=== PATIENT | male | born 1970 | race Caucasian/White ===

== ENCOUNTER 2016-12-24 05:02 | Inpatient (IN) | payer BC ==
[~2016-12-24 05:02] MED LIST: ALEVE220 M3 PO; ALEVE220 MG; ALKA-SELTZER H1 EAC1 PO; ALLOPURINOL100 M1 PO; ALLOPURINOL300 M1 PO; AMOXICILLIN500 M PO; BENICAR HCT 40-1 T; BENICAR HCT 40-1 TAB PO; BENICAR HCT 401 EACH PO; CATAPRES0.2 M1 PO; CEFTRIAXON1000 MG/VI IV; CLINDAMYCIN HC300 M2 PO; K-DUR20 MEQ PO; LISINOPRIL20 M1 PO; NORCO 7.5/325 T1 TAB PO; NORVASC10 M2 PO; NORVASC5 M2 PO; PERIDEX118 ML SSP; PRILOSEC OTC20 M1 PO; ROXICODONE5 M2 PO; SODIUM CHLORIDE10 M2 IV; TYLENOL EXTRA500 M1 PO; VICODIN 5/500 T1 TAB PO
[2016-12-24] MEDS ORDERED: AMLODIPINE BESY10 M1 PO (05:13)
[2016-12-24] MEDS ORDERED: ZOFRAN4 M2 PO (05:13)
[2016-12-24] MEDS ORDERED: CATAPRES0.2 M1 PO (05:13)
[2016-12-24] MEDS ORDERED: ZYLOPRIM300 M1 PO (05:13)
[2016-12-24 05:58] LABS: ALB/GLOB RATIO 0.7 (0.8-2.0); ALBUMIN 3.1 g/dl (3.5-5.0); ALKALINE PHOSPHATASE 71 U/L (33-138); ALT/SGPT 92 U/L (12-78); BLOOD UREA NITROGEN 21 mg/dl (6-24); CALCIUM 8.9 mg/dl (8.5-10.5); CARBON DIOXIDE-VENOUS 27 mmol/L (22-32); CHLORIDE 98 mmol/l (96-110); CREATININE 1.28 mg/dl (0.60-1.30); GLUCOSE 138 mg/dL (70-110); LIPASE 48 U/L (73-393); SODIUM 137 mmol/L (135-145); eGFR VALUE FOR BLACK 78 mL/Min
[2016-12-24 06:13] LABS: ANION GAP 14 mmol/L (0-20); AST/SGOT 105 U/L (10-40)
[2016-12-24 06:14] LABS: POTASSIUM 2.4 mmol/L (3.7-5.1)
[2016-12-24 06:22] LABS: BASO % 0.1 % (0-2); EOS % 0.1 % (0-7); HCT-HEMATOCRIT 43.8 % (36.0-53.5); HGB-HEMOGLOBIN 16.8 gm/dl (13.5-17.0); IMMATURE GRANULOCYTES ABSOLUTE 0.34 tho/cmm (0-0.03); IMMATURE GRANULOCYTES PERCENT 2.4 % (0-0.3); LYMPH ABSOLUTE COUNT 0.4 tho/cmm (0.8-4.5); MCH (MEAN CORPUSCULAR HGB) 37.8 pg (28.0-32.0); MCV (MEAN CELL VOLUME) 98.6 fl (82.0-96.0); MEAN PLATELET VOLUME 11.4 cmc (9.4-12.4); MONO % 2.9 % (0-12); MONOCYTE ABSOLUTE COUNT 0.4 tho/cmm (0.0-1.2); NEUTROPHIL ABSOLUTE COUNT 13.1 tho/cmm (1.6-8.0); NEUTROPHIL-AUTOMATED 13.1 tho/cmm (1.6-8.0); NEUTROPHILS % 91.5 % (40-80); PLATELET COUNT 109 tho/cmm (150-450); RED BLOOD COUNT 4.44 mil/cmm (4.40-5.70); RED CELL DISTRIBUTION WIDTH 14.6 % (12.4-16.4); WHITE BLOOD COUNT 14.3 tho/cmm (4.0-10.0)
[2016-12-24 06:25] LABS: MCHC MEAN CORPUSCULAR HGB CONC 38.4 % (32.0-36.0)
[2016-12-24 06:47] LABS: PROCALCITONIN 5.95 ng/ml (0.05-0.09)
[2016-12-24 07:43] LABS: URINE BILIRUBIN MODERATE (NEG); URINE BLOOD SMALL (NEG); URINE GLUCOSE (UA) NEGATIVE (NEG); URINE KETONE NEGATIVE (NEG); URINE LEUKOCYTE ESTERASE POSITIVE (NEG); URINE NITRITE NEGATIVE (NEG); URINE PROTEIN MODERATE (NEG)
[2016-12-24 07:48] LABS: URINE APPEARANCE HAZY; URINE COLOR DARK YELLOW
[2016-12-24 08:02] LABS: URINE EPITHELIAL CELLS 0-2 /[HPF] (0-10); URINE RBC 0-1 /[HPF] (0-5)
[2016-12-24 10:18] LABS: INR 1.6 INR (0.9-1.1); PROTHROMBIN TIME 18.5 SECONDS (9.0-13.6)
[2016-12-24 13:52] LABS: MAGNESIUM 1.7 mg/dl (1.3-2.6)
[2016-12-24 14:01] LABS: POTASSIUM 2.8 mmol/L (3.7-5.1)
[2016-12-24 18:23] LABS: ABG CO2 ARTERIAL 24 mmol/L (21-27); ARTERIAL BLD GAS O2 SATURATION 97 % (95-98); ARTERIAL BLOOD GAS PCO2 35 mmHg (32-45); ARTERIAL PO2 84 mmHg (70-100); BICARBONATE 23 mmol/L (21-28); BLOOD GAS BASE EXCESS 0 mM/L (-/+3); PH 7.44 Units (7.35-7.45)
--- NOTE | 2016-12-24 19:17 | NUR ---
LACTIC ACID DRAWN AND CAM BACK AT 4.2. DR JORDAN NOTIFIED @ 1820. DID NOT WANT TO TRANSFER PATIENT TO THE ICU. GAVE ORDERS TO RECHECK LACTIC ACID AT MIDNIGHT.
--- NOTE | 2016-12-24 19:19 | NUR ---
PATIENT'S RECHECK K+ @ 1400 CAME BACK @ A CRITICAL VALUE OF 2.8. ORDERS TO GIVE 40MEQ OF IV POTASSIUM AND RECHECK IN THE AM.
--- NOTE | 2016-12-24 19:20 | NUR ---
BLOOD CULTURES CAME BACK POSITIVE FOR GRAM NEG RODS. NOTIFIED DR TAPIA AT 1630. PATIENT ALREADY ON ZOSYN. NO OTHER NEW ORDERS.
[2016-12-25 05:42] LABS: HCT-HEMATOCRIT 37.2 % (36.0-53.5); HGB-HEMOGLOBIN 13.5 gm/dl (13.5-17.0); MCH (MEAN CORPUSCULAR HGB) 36.9 pg (28.0-32.0); MCV (MEAN CELL VOLUME) 101.6 fl (82.0-96.0); MEAN PLATELET VOLUME 11.3 cmc (9.4-12.4); NEUTROPHIL-AUTOMATED 2.5 tho/cmm (1.6-8.0); PLATELET COUNT 58 tho/cmm (150-450); RED BLOOD COUNT 3.66 mil/cmm (4.40-5.70); RED CELL DISTRIBUTION WIDTH 15.4 % (12.4-16.4)
[2016-12-25 05:44] LABS: INR 1.2 INR (0.9-1.1)
[2016-12-25 05:47] LABS: EOS % 0.3 % (0-7); IMMATURE GRANULOCYTES ABSOLUTE 0.92 tho/cmm (0-0.03); LYMPH ABSOLUTE COUNT 0.2 tho/cmm (0.8-4.5); MCHC MEAN CORPUSCULAR HGB CONC 36.3 % (32.0-36.0); MONO % 1.9 % (0-12); MONOCYTE ABSOLUTE COUNT 0.1 tho/cmm (0.0-1.2); NEUTROPHIL ABSOLUTE COUNT 2.5 tho/cmm (1.6-8.0); NEUTROPHILS % 66.8 % (40-80); WHITE BLOOD COUNT 3.7 tho/cmm (4.0-10.0)
[2016-12-25 05:53] LABS: PROTHROMBIN TIME 14.3 SECONDS (9.0-13.6)
[2016-12-25 05:55] LABS: ALB/GLOB RATIO 0.5 (0.8-2.0); ALBUMIN 2.1 g/dl (3.5-5.0); ALKALINE PHOSPHATASE 116 U/L (33-138); ALT/SGPT 50 U/L (12-78); AMYLASE 7 U/L (20-90); AST/SGOT 77 U/L (10-40); BILIRUBIN,TOTAL 11.4 mg/dl (0.0-1.5); BLOOD UREA NITROGEN 19 mg/dl (6-24); CALCIUM 7.4 mg/dl (8.5-10.5); CARBON DIOXIDE-VENOUS 25 mmol/L (22-32); CHLORIDE 106 mmol/l (96-110); CREATININE 0.99 mg/dl (0.60-1.30); GLUCOSE 99 mg/dL (70-110); LIPASE 27 U/L (73-393); MAGNESIUM 1.9 mg/dl (1.3-2.6); SODIUM 141 mmol/L (135-145); eGFR VALUE FOR BLACK >90 mL/Min
[2016-12-25 06:00] LABS: ANION GAP 13 mmol/L (0-20)
[2016-12-25 06:01] LABS: POTASSIUM 2.8 mmol/L (3.7-5.1)
[2016-12-25 11:46] LABS: ABG CO2 ARTERIAL 23 mmol/L (21-27); ARTERIAL BLD GAS O2 SATURATION 95 % (95-98); ARTERIAL BLOOD GAS PCO2 30 mmHg (32-45); BICARBONATE 22 mmol/L (21-28); BLOOD GAS BASE EXCESS 0 mM/L (-/+3); PH 7.48 Units (7.35-7.45)
[2016-12-25 11:47] LABS: ARTERIAL PO2 65 mmHg (70-100)
[2016-12-25 13:35] LABS: IRON BINDING CAPACITY 181 ug/dl (250-450)
[2016-12-25 13:41] LABS: IRON <10 ug/dl (49-181)
[2016-12-26 04:03] LABS: INR 1.2 INR (0.9-1.1); PROTHROMBIN TIME 13.4 SECONDS (9.0-13.6)
[2016-12-26 04:14] LABS: BASO % 0.1 % (0-2); EOS % 0.6 % (0-7); EOSINOPHIL ABSOLUTE COUNT 0.1 tho/cmm (0.0-0.7); HCT-HEMATOCRIT 34.7 % (36.0-53.5); HGB-HEMOGLOBIN 12.4 gm/dl (13.5-17.0); IMMATURE GRANULOCYTES ABSOLUTE 0.05 tho/cmm (0-0.03); IMMATURE GRANULOCYTES PERCENT 0.6 % (0-0.3); LYMPH % 10.3 % (20-45); LYMPH ABSOLUTE COUNT 0.8 tho/cmm (0.8-4.5); MCH (MEAN CORPUSCULAR HGB) 36.6 pg (28.0-32.0); MCHC MEAN CORPUSCULAR HGB CONC 35.7 % (32.0-36.0); MCV (MEAN CELL VOLUME) 102.4 fl (82.0-96.0); MEAN PLATELET VOLUME 12.2 cmc (9.4-12.4); MONO % 10.4 % (0-12); MONOCYTE ABSOLUTE COUNT 0.8 tho/cmm (0.0-1.2); NEUTROPHIL ABSOLUTE COUNT 6.2 tho/cmm (1.6-8.0); NEUTROPHIL-AUTOMATED 6.2 tho/cmm (1.6-8.0); RED BLOOD COUNT 3.39 mil/cmm (4.40-5.70); RED CELL DISTRIBUTION WIDTH 15.7 % (12.4-16.4)
[2016-12-26 04:15] LABS: ALB/GLOB RATIO 0.5 (0.8-2.0); ALBUMIN 1.8 g/dl (3.5-5.0); ALKALINE PHOSPHATASE 113 U/L (33-138); ALT/SGPT 47 U/L (12-78); ANION GAP 12 mmol/L (0-20); AST/SGOT 98 U/L (10-40); BILIRUBIN,TOTAL 13.7 mg/dl (0.0-1.5); BLOOD UREA NITROGEN 25 mg/dl (6-24); CALCIUM 7.2 mg/dl (8.5-10.5); CARBON DIOXIDE-VENOUS 25 mmol/L (22-32); CHLORIDE 112 mmol/l (96-110); CREATININE 0.91 mg/dl (0.60-1.30); GLUCOSE 109 mg/dL (70-110); POTASSIUM 3.8 mmol/L (3.7-5.1); SODIUM 145 mmol/L (135-145); eGFR VALUE FOR BLACK >90 mL/Min
[2016-12-26 04:25] LABS: WHITE BLOOD COUNT 7.9 tho/cmm (4.0-10.0)
[2016-12-26 04:26] LABS: PLATELET COUNT 50 tho/cmm (150-450)
[2016-12-26 16:17] LABS: BASO % 0.1 % (0-2); EOS % 1.2 % (0-7); EOSINOPHIL ABSOLUTE COUNT 0.1 tho/cmm (0.0-0.7); HCT-HEMATOCRIT 33.4 % (36.0-53.5); HGB-HEMOGLOBIN 11.9 gm/dl (13.5-17.0); IMMATURE GRANULOCYTES ABSOLUTE 0.11 tho/cmm (0-0.03); IMMATURE GRANULOCYTES PERCENT 1.2 % (0-0.3); LYMPH % 8.4 % (20-45); LYMPH ABSOLUTE COUNT 0.8 tho/cmm (0.8-4.5); MCH (MEAN CORPUSCULAR HGB) 36.6 pg (28.0-32.0); MCHC MEAN CORPUSCULAR HGB CONC 35.6 % (32.0-36.0); MCV (MEAN CELL VOLUME) 102.8 fl (82.0-96.0); MEAN PLATELET VOLUME 11.3 cmc (9.4-12.4); MONO % 8.8 % (0-12); MONOCYTE ABSOLUTE COUNT 0.8 tho/cmm (0.0-1.2); NEUTROPHIL ABSOLUTE COUNT 7.3 tho/cmm (1.6-8.0); NEUTROPHIL-AUTOMATED 7.3 tho/cmm (1.6-8.0); NEUTROPHILS % 80.3 % (40-80); RED BLOOD COUNT 3.25 mil/cmm (4.40-5.70); RED CELL DISTRIBUTION WIDTH 15.6 % (12.4-16.4); WHITE BLOOD COUNT 9.1 tho/cmm (4.0-10.0)
[2016-12-26 16:18] LABS: INR 1.1 INR (0.9-1.1); PROTHROMBIN TIME 12.6 SECONDS (9.0-13.6)
[2016-12-26 16:21] LABS: PLATELET COUNT 80 tho/cmm (150-450)
[2016-12-26 16:25] LABS: ANION GAP 12 mmol/L (0-20); BLOOD UREA NITROGEN 25 mg/dl (6-24); CALCIUM 7.3 mg/dl (8.5-10.5); CARBON DIOXIDE-VENOUS 25 mmol/L (22-32); CHLORIDE 115 mmol/l (96-110); CREATININE 0.77 mg/dl (0.60-1.30); GLUCOSE 110 mg/dL (70-110); POTASSIUM 3.7 mmol/L (3.7-5.1); SODIUM 148 mmol/L (135-145); eGFR VALUE FOR BLACK >90 mL/Min
[2016-12-27 04:14] LABS: BASO % 0.4 % (0-2); EOS % 1.4 % (0-7); EOSINOPHIL ABSOLUTE COUNT 0.1 tho/cmm (0.0-0.7); HCT-HEMATOCRIT 33.3 % (36.0-53.5); HGB-HEMOGLOBIN 11.8 gm/dl (13.5-17.0); IMMATURE GRANULOCYTES ABSOLUTE 0.15 tho/cmm (0-0.03); IMMATURE GRANULOCYTES PERCENT 1.8 % (0-0.3); MCH (MEAN CORPUSCULAR HGB) 36.3 pg (28.0-32.0); MCHC MEAN CORPUSCULAR HGB CONC 35.4 % (32.0-36.0); MCV (MEAN CELL VOLUME) 102.5 fl (82.0-96.0); MEAN PLATELET VOLUME 11.3 cmc (9.4-12.4); MONOCYTE ABSOLUTE COUNT 0.8 tho/cmm (0.0-1.2); NEUTROPHIL ABSOLUTE COUNT 6.2 tho/cmm (1.6-8.0); NEUTROPHIL-AUTOMATED 6.2 tho/cmm (1.6-8.0); NEUTROPHILS % 74.4 % (40-80); PLATELET COUNT 75 tho/cmm (150-450); RED BLOOD COUNT 3.25 mil/cmm (4.40-5.70); RED CELL DISTRIBUTION WIDTH 15.5 % (12.4-16.4); WHITE BLOOD COUNT 8.4 tho/cmm (4.0-10.0)
[2016-12-27 04:28] LABS: ANION GAP 11 mmol/L (0-20); BLOOD UREA NITROGEN 22 mg/dl (6-24); C-REACTIVE PROTEIN 14.1 mg/dl (0-0.9); CALCIUM 7.4 mg/dl (8.5-10.5); CARBON DIOXIDE-VENOUS 22 mmol/L (22-32); CHLORIDE 118 mmol/l (96-110); CREATININE 0.82 mg/dl (0.60-1.30); GLUCOSE 77 mg/dL (70-110); POTASSIUM 3.6 mmol/L (3.7-5.1); SODIUM 147 mmol/L (135-145); eGFR VALUE FOR BLACK >90 mL/Min
[2016-12-28 04:33] LABS: BASO % 1.9 % (0-2); BASO ABSOLUTE COUNT 0.2 tho/cmm (0.0-0.2); EOS % 1.5 % (0-7); EOSINOPHIL ABSOLUTE COUNT 0.1 tho/cmm (0.0-0.7); IMMATURE GRANULOCYTES ABSOLUTE 0.15 tho/cmm (0-0.03); IMMATURE GRANULOCYTES PERCENT 1.6 % (0-0.3); LYMPH % 20.2 % (20-45); LYMPH ABSOLUTE COUNT 1.9 tho/cmm (0.8-4.5); MCHC MEAN CORPUSCULAR HGB CONC 35.3 % (32.0-36.0); MCV (MEAN CELL VOLUME) 102.1 fl (82.0-96.0); MEAN PLATELET VOLUME 11.6 cmc (9.4-12.4); MONO % 13.2 % (0-12); MONOCYTE ABSOLUTE COUNT 1.2 tho/cmm (0.0-1.2); NEUTROPHIL ABSOLUTE COUNT 5.8 tho/cmm (1.6-8.0); NEUTROPHIL-AUTOMATED 5.8 tho/cmm (1.6-8.0); NEUTROPHILS % 61.6 % (40-80); PLATELET COUNT 86 tho/cmm (150-450); RED BLOOD COUNT 3.33 mil/cmm (4.40-5.70); RED CELL DISTRIBUTION WIDTH 15.3 % (12.4-16.4); WHITE BLOOD COUNT 9.4 tho/cmm (4.0-10.0)
[2016-12-28 04:51] LABS: INR 1.1 INR (0.9-1.1); PROTHROMBIN TIME 12.5 SECONDS (9.0-13.6)
[2016-12-28 05:00] LABS: ALB/GLOB RATIO 0.5 (0.8-2.0); ALBUMIN 1.7 g/dl (3.5-5.0); ALKALINE PHOSPHATASE 250 U/L (33-138); ALT/SGPT 51 U/L (12-78); ANION GAP 12 mmol/L (0-20); AST/SGOT 116 U/L (10-40); BILIRUBIN,TOTAL 14.9 mg/dl (0.0-1.5); BLOOD UREA NITROGEN 17 mg/dl (6-24); CALCIUM 7.6 mg/dl (8.5-10.5); CARBON DIOXIDE-VENOUS 24 mmol/L (22-32); CHLORIDE 108 mmol/l (96-110); CREATININE 0.79 mg/dl (0.60-1.30); GLUCOSE 81 mg/dL (70-110); POTASSIUM 3.6 mmol/L (3.7-5.1); PREALBUMIN 4.2 mg/dl (20.0-40.0); SODIUM 140 mmol/L (135-145); eGFR VALUE FOR BLACK >90 mL/Min
[2016-12-28 05:35] LABS: C-REACTIVE PROTEIN 5.9 mg/dl (0-0.9); PHOSPHOROUS 0.6 mg/dl (2.5-4.9)
[2016-12-28 08:32] LABS: WBC MORPHOLOGY VARIANT LYMPHS
[2016-12-29 06:02] LABS: HCT-HEMATOCRIT 32.2 % (36.0-53.5); HGB-HEMOGLOBIN 11.3 gm/dl (13.5-17.0); MCH (MEAN CORPUSCULAR HGB) 36.3 pg (28.0-32.0); MCHC MEAN CORPUSCULAR HGB CONC 35.1 % (32.0-36.0); MCV (MEAN CELL VOLUME) 103.5 fl (82.0-96.0); MEAN PLATELET VOLUME 11.1 cmc (9.4-12.4); NEUTROPHIL-AUTOMATED 9.7 tho/cmm (1.6-8.0); PLATELET COUNT 129 tho/cmm (150-450); RED BLOOD COUNT 3.11 mil/cmm (4.40-5.70); RED CELL DISTRIBUTION WIDTH 15.2 % (12.4-16.4)
[2016-12-29 06:03] LABS: WHITE BLOOD COUNT 14.2 tho/cmm (4.0-10.0)
[2016-12-29 06:07] LABS: ALB/GLOB RATIO 0.4 (0.8-2.0); ALBUMIN 1.8 g/dl (3.5-5.0); ALKALINE PHOSPHATASE 232 U/L (33-138); ALT/SGPT 46 U/L (12-78); ANION GAP 17 mmol/L (0-20); AST/SGOT 82 U/L (10-40); BILIRUBIN,TOTAL 8.6 mg/dl (0.0-1.5); BLOOD UREA NITROGEN 10 mg/dl (6-24); C-REACTIVE PROTEIN 3.6 mg/dl (0-0.9); CALCIUM 7.6 mg/dl (8.5-10.5); CARBON DIOXIDE-VENOUS 22 mmol/L (22-32); CHLORIDE 104 mmol/l (96-110); CREATININE 0.79 mg/dl (0.60-1.30); PHOSPHOROUS 2.7 mg/dl (2.5-4.9); POTASSIUM 3.6 mmol/L (3.7-5.1); SODIUM 139 mmol/L (135-145); eGFR VALUE FOR BLACK >90 mL/Min
[2016-12-29 06:14] LABS: GLUCOSE 148 mg/dL (70-110)
[2016-12-29 06:54] LABS: PROCALCITONIN 1.26 ng/ml (0.05-0.09)
[2016-12-29 09:10] LABS: BAND % 9 % (0-20); BAND ABSOLUTE COUNT 1.3 tho/cmm (0-2.0); EOSINOPHIL % 2 % (0-7)
[2016-12-30 05:28] LABS: ALB/GLOB RATIO 0.4 (0.8-2.0); ALBUMIN 1.9 g/dl (3.5-5.0); ALKALINE PHOSPHATASE 229 U/L (33-138); ALT/SGPT 44 U/L (12-78); ANION GAP 12 mmol/L (0-20); AST/SGOT 72 U/L (10-40); BLOOD UREA NITROGEN 8 mg/dl (6-24); C-REACTIVE PROTEIN 2.7 mg/dl (0-0.9); CALCIUM 7.8 mg/dl (8.5-10.5); CARBON DIOXIDE-VENOUS 22 mmol/L (22-32); CHLORIDE 109 mmol/l (96-110); CREATININE 0.64 mg/dl (0.60-1.30); GLUCOSE 90 mg/dL (70-110); POTASSIUM 3.7 mmol/L (3.7-5.1); SODIUM 139 mmol/L (135-145); eGFR VALUE FOR BLACK >90 mL/Min
[2016-12-30 06:01] LABS: BASO % 0.8 % (0-2); BASO ABSOLUTE COUNT 0.1 tho/cmm (0.0-0.2); EOSINOPHIL ABSOLUTE COUNT 0.1 tho/cmm (0.0-0.7); HCT-HEMATOCRIT 31.5 % (36.0-53.5); HGB-HEMOGLOBIN 10.9 gm/dl (13.5-17.0); IMMATURE GRANULOCYTES ABSOLUTE 0.58 tho/cmm (0-0.03); IMMATURE GRANULOCYTES PERCENT 4.9 % (0-0.3); LYMPH % 14.1 % (20-45); LYMPH ABSOLUTE COUNT 1.7 tho/cmm (0.8-4.5); MCH (MEAN CORPUSCULAR HGB) 36.7 pg (28.0-32.0); MCHC MEAN CORPUSCULAR HGB CONC 34.6 % (32.0-36.0); MCV (MEAN CELL VOLUME) 106.1 fl (82.0-96.0); MEAN PLATELET VOLUME 10.9 cmc (9.4-12.4); MONO % 9.1 % (0-12); MONOCYTE ABSOLUTE COUNT 1.1 tho/cmm (0.0-1.2); NEUTROPHIL ABSOLUTE COUNT 8.4 tho/cmm (1.6-8.0); NEUTROPHIL-AUTOMATED 8.4 tho/cmm (1.6-8.0); NEUTROPHILS % 70.1 % (40-80); PLATELET COUNT 176 tho/cmm (150-450); RED BLOOD COUNT 2.97 mil/cmm (4.40-5.70); RED CELL DISTRIBUTION WIDTH 15.3 % (12.4-16.4); WHITE BLOOD COUNT 11.9 tho/cmm (4.0-10.0)
[2016-12-30 06:11] LABS: PROCALCITONIN 0.97 ng/ml (0.05-0.09)
[2016-12-30] MEDS ORDERED: CIPRO500 M2 PO (16:43)
[2017-01-13] MEDS ORDERED: TYLENOL EXTRA500 M1 PO (09:01)
[2017-01-13] MEDS ORDERED: CIPROFLOXACIN750 M1 PO (09:10)
== END 2016-12-30 17:35 | disposition home health service (06) | DRG 871 ==
LOC: EDMED 05:02 → EMR2 09:57 → PCUA 10:54 → CCU 12-25 11:58 → 5WF 12-29 17:25
PROVIDERS: Emergency Medicine; Family Medicine; Internal Medicine; Internal Medicine Cardiovascular Disease; Internal Medicine Gastroenterology; Radiology Diagnostic Radiology; Surgery; ADMIT Internal Medicine
PROC: 02HV33Z Insertion of Infusion Device into Superior Vena Cava, Percutaneous Approach (ICD-10-PCS; 2016-12-24)
PROC: 5A09357 Assistance with Respiratory Ventilation, Less than 24 Consecutive Hours, Continuous Positive Airway Pressure (ICD-10-PCS; 2016-12-25)
PROC: 0F9430Z Drainage of Gallbladder with Drainage Device, Percutaneous Approach (ICD-10-PCS; principal; 2016-12-26)
DX: A41.51 Sepsis due to Escherichia coli [E. coli] (principal); R65.21 Severe sepsis with septic shock; J96.01 Acute respiratory failure with hypoxia; K81.0 Acute cholecystitis; E83.42 Hypomagnesemia; D68.9 Coagulation defect, unspecified; E87.0 Hyperosmolality and hypernatremia; F10.239 Alcohol dependence with withdrawal, unspecified; K70.10 Alcoholic hepatitis without ascites; D69.6 Thrombocytopenia, unspecified; Y90.0 Blood alcohol level of less than 20 mg/100 ml; I10 Essential (primary) hypertension; M19.90 Unspecified osteoarthritis, unspecified site; Z96.643 Presence of artificial hip joint, bilateral; M48.00 Spinal stenosis, site unspecified; E87.6 Hypokalemia; K76.0 Fatty (change of) liver, not elsewhere classified; N20.0 Calculus of kidney; A41.89 Other specified sepsis; R74.0 Nonspecific elevation of levels of transaminase and lactic acid dehydrogenase [LDH]; R16.0 Hepatomegaly, not elsewhere classified; G31.2 Degeneration of nervous system due to alcohol; M1A.9XX0 Chronic gout, unspecified, without tophus (tophi); B96.1 Klebsiella pneumoniae [K. pneumoniae] as the cause of diseases classified elsewhere
CPT/HCPCS: C1729; C1751; C1769; C1894; C9113; G0480; J0696; J1170; J1940; J1956; J2060; J2250; J2270; J2405; J2543; J3411; J3430; J3475; J3480; J7030; J7050; P9031; P9033; P9035; P9037; Q9967

== ENCOUNTER 2017-01-16 11:37 | Day surgery (SDC) | payer BC ==
[~2017-01-16 11:37] MED LIST changes: +AMLODIPINE BESY10 M1 PO; +CIPRO500 M2 PO; +CIPROFLOXACIN750 M1 PO; +ZOFRAN4 M2 PO; +ZYLOPRIM300 M1 PO
[2017-01-16 12:34] LABS: PROTHROMBIN TIME 11.8 SECONDS (9.0-13.6)
[2017-01-17 05:32] LABS: BASO % 0.1 % (0-2); EOS % 0.1 % (0-7); HCT-HEMATOCRIT 27.6 % (36.0-53.5); HGB-HEMOGLOBIN 9.6 gm/dl (13.5-17.0); IMMATURE GRANULOCYTES ABSOLUTE 0.05 tho/cmm (0-0.03); IMMATURE GRANULOCYTES PERCENT 0.4 % (0-0.3); LYMPH ABSOLUTE COUNT 0.9 tho/cmm (0.8-4.5); MCH (MEAN CORPUSCULAR HGB) 35.4 pg (28.0-32.0); MCHC MEAN CORPUSCULAR HGB CONC 34.8 % (32.0-36.0); MCV (MEAN CELL VOLUME) 101.8 fl (82.0-96.0); MEAN PLATELET VOLUME 10.1 cmc (9.4-12.4); MONO % 6.5 % (0-12); MONOCYTE ABSOLUTE COUNT 0.9 tho/cmm (0.0-1.2); NEUTROPHIL ABSOLUTE COUNT 11.6 tho/cmm (1.6-8.0); NEUTROPHIL-AUTOMATED 11.6 tho/cmm (1.6-8.0); NEUTROPHILS % 85.9 % (40-80); PLATELET COUNT 169 tho/cmm (150-450); RED BLOOD COUNT 2.71 mil/cmm (4.40-5.70); WHITE BLOOD COUNT 13.5 tho/cmm (4.0-10.0)
[2017-01-17 05:36] LABS: ALB/GLOB RATIO 0.8 (0.8-2.0); ALBUMIN 2.9 g/dl (3.5-5.0); ALKALINE PHOSPHATASE 93 U/L (33-138); ALT/SGPT 43 U/L (12-78); ANION GAP 14 mmol/L (0-20); AST/SGOT 53 U/L (10-40); BILIRUBIN,TOTAL 1.4 mg/dl (0.0-1.5); BLOOD UREA NITROGEN 14 mg/dl (6-24); CALCIUM 8.6 mg/dl (8.5-10.5); CARBON DIOXIDE-VENOUS 23 mmol/L (22-32); CHLORIDE 109 mmol/l (96-110); CREATININE 0.96 mg/dl (0.60-1.30); GLUCOSE 111 mg/dL (70-110); POTASSIUM 5.1 mmol/L (3.7-5.1); SODIUM 141 mmol/L (135-145); eGFR VALUE FOR BLACK >90 mL/Min
== END 2017-01-17 09:50 | disposition other institution (70) ==
LOC: SRG 11:37 → SHSC 11:38 → ORW 14:55 → PACU 19:47 → 5WD 20:50
PROVIDERS: Surgery
PROC: 0FJ44ZZ Inspection of Gallbladder, Percutaneous Endoscopic Approach (ICD-10-PCS; principal; 2017-01-16)
PROC: 0FT40ZZ Resection of Gallbladder, Open Approach (ICD-10-PCS; 2017-01-16)
PROC: BF03YZZ Plain Radiography of Gallbladder and Bile Ducts using Other Contrast (ICD-10-PCS; 2017-01-16)
DX: K81.2 Acute cholecystitis with chronic cholecystitis (principal); K70.10 Alcoholic hepatitis without ascites; I10 Essential (primary) hypertension; Z53.31 Laparoscopic surgical procedure converted to open procedure; Z98.890 Other specified postprocedural states; Z79.899 Other long term (current) drug therapy
CPT/HCPCS: C2617; J1170; J1956; J3010; J7030; J7050